=== PATIENT | male | born 1950 | race Caucasian/White ===

== ENCOUNTER 2017-01-19 15:14 | Emergency (ER) | payer OTHER ==
[~2017-01-19] VITALS: Ht 180.3 cm; Wt 10.4 kg
[~2017-01-19 15:14] MED LIST: COUMADIN5 MG PO; FLOMAX0.4 MG PO; FLONASE16 G1 BOTH NARES; LISINOPRIL40 MG PO; LOVENOX100 MG/1 M SC; PERCOCET 5/31 TABLET PO; PROMETHAZINE HC25 M1 PO; VIAGRA50 MG PO
[2017-01-19] MEDS ORDERED: ULTRACET1 TABLET PO (16:45)
[2017-01-19 17:01] VITALS: BP 116/83
== END 2017-01-19 17:01 | disposition home or self-care (01) ==
LOC: EME 15:14
DX: S93.402A Sprain of unspecified ligament of left ankle, initial encounter (principal); X50.9XXA Other and unspecified overexertion or strenuous movements or postures, initial encounter
CPT/HCPCS: 73610; 99281; 99284